=== PATIENT | female | born 1990 | race Caucasian/White ===

== ENCOUNTER 2018-06-07 10:45 | Emergency (ER) | payer SELFPAY ==
[2018-06-07] MEDS ORDERED: Ketorolac 60 MG/2 ML SDV IM ONE (11:16)
[2018-06-07 11:22] LABS: CHLORIDE,CL 103 mEq/L (98-106); SODIUM,NA 139 mEq/L (136-145)
--- NOTE | 2018-06-07 12:35 | EDM.PDOC ---
ED HPI GENERAL MEDICAL PROBLEM - General Chief Complaint: Respiratory Problem Stated Complaint: BREATHING DIFFICULTY Time Seen by Provider: 06/07/18 11:15 Source of Information: Reports: Patient History Limitations: Reports: No Limitations - History of Present Illness INITIAL COMMENTS - FREE TEXT/NARRATIVE: Patient presents to ER with complaints of pain to the left breast. States has a lump to the inner quadrant near her sternum and it hurts when she breathes. Has felt a firmness in her abdomen now for a year and her breast but only had the pain for the last 4 days. She denies a cough. No trauma. Has had nausea and dry heaves. No vomiting. No prior medical history. She admits that she did take a Zofran of her 's for the nausea and that did help. She also has been taking Pepcid AC and TUMS for quite some time for the heartburn without much relief. Patient relates she feels better if she holds her breast up. No urinary or bowel complaints. Onset: Gradual Duration: Week(s):, Waxing/Waning Location: Reports: Chest, Abdomen Quality: Reports: Sharp, Stabbing Severity: Severe Improves with: Reports: Rest Worsens with: Reports: Breathing Treatments [employer]: Reports: Other Medication(s) Other Treatments [employer]: Pepcid AC, Tums, Zofran Left Chest Pain Score (Numeric/FACES): 8 - Related Data Allergies Allergy/AdvReac Type Severity Reaction Status Date / Time No Known Allergies Allergy Verified 06/07/18 11:04 Home Meds: Home Meds Ondansetron HCl [Zofran] 4 mg PO Q8H #30 tablet 06/07/18 [Rx] Pantoprazole Sodium [Protonix] 20 mg PO DAILY #30 tablet. 06/07/18 [Rx] Sucralfate [Carafate] 1 gm PO QIDACANDBED #28 cup 06/07/18 [Rx] Past Medical History HEENT History: Reports: None Cardiovascular History: Reports: None Respiratory History: Reports: None Gastrointestinal History: Reports: Other (See Below) Other Gastrointestinal History: acid reflux Genitourinary History: Reports: None [employer] History: Reports: Musculoskeletal History: Reports: None Neurological History: Reports: None Psychiatric History: Reports: None Endocrine/Metabolic History: Reports: None Hematologic History: Reports: None Immunologic History: Reports: None Oncologic (Cancer) History: Reports: None Dermatologic History: Reports: None - Past Surgical History Head Surgeries/Procedures: Reports: None Cardiovascular Surgical History: Reports: None Respiratory Surgical History: Reports: None GI Surgical History: Reports: None Female Surgical History: Reports: Tubal Ligation Endocrine Surgical History: Reports: None Neurological Surgical History: Reports: None Oncologic Surgical History: Reports: None Dermatological Surgical History: Reports: None Social & Family History - Tobacco Use Smoking Status *Q: Never Smoker ED ROS GENERAL - Review of Systems Review Of Systems: See Below Constitutional: Reports: Decreased Appetite. Denies: Fever, Chills, Malaise, Weakness HEENT: Reports: No Symptoms Respiratory: Reports: Pleuritic Chest Pain. Denies: Shortness of Breath, Cough Cardiovascular: Denies: Chest Pain, Edema, Lightheadedness Endocrine: Denies: Fatigue GI/Abdominal: Reports: Abdominal Pain, Nausea. Denies: Black Stool, Bloody Stool, Constipation, Diarrhea, Vomiting Musculoskeletal: Reports: No Symptoms Skin: Reports: No Symptoms Neurological: Reports: No Symptoms ED EXAM, GENERAL - Physical Exam Exam: See Below Exam Limited By: No Limitations General Appearance: Alert, WD/WN, Mild Distress Ears: Normal External Exam, Normal TMs Nose: Normal Inspection, Normal Mucosa, No Blood Throat/Mouth: Normal Inspection, Normal Oropharynx Head: Normocephalic Neck: Normal Inspection, Supple, Non-Tender Respiratory/Chest: No Respiratory Distress, Lungs Clear, Normal Breath Sounds Cardiovascular: Regular Rate, Rhythm GI/Abdominal: Normal Bowel Sounds, Soft, Tender (bilateral upper quadrants) Extremities: Normal Inspection, Normal Capillary Refill Neurological: Alert, Oriented Skin Exam: Warm, Dry Course - Vital Signs Last Recorded V/S: Last Vital Signs Temp 96.7 F 06/07/18 10:57 Pulse 110 H 06/07/18 10:57 Resp 18 06/07/18 10:57 BP 140/97 H 06/07/18 10:57 Pulse Ox 97 06/07/18 10:57 - Orders/Labs/Meds Orders: Active Orders 24 hr Category Date Time Status Abdomen Ltd [US] Stat Exams 06/07/18 11:49 Ordered Chest 2V [CR] Stat Exams 06/07/18 10:58 Taken HCG QUALITATIVE,URINE [URCHEM] Stat Lab 06/07/18 11:08 Ordered Labs: Laboratory Tests 06/07/18 06/07/18 06/07/18 Range/Units 11:08 11:08 11:08 WBC 10.3 H (5.0-10.0) 10^3/uL RBC 4.88 (4.00-5.50) 10^6/uL Hgb 13.5 (12.0-16.0) g/dL Hct 41.0 (37.0-47.0) % MCV 84.0 (82.0-94.0) fL MCH 27.7 (27.0-32.0) pg MCHC 32.9 L (33.0-38.0) g/dL RDW Coeff of Sammy 15.8 H (11.0-15.0) % Plt Count 377 (150-400) 10^3/uL Neut % (Auto) 57.6 (35-85) % Lymph % (Auto) 32.3 (10-55) % [place] % (Auto) 4.9 (0-16) % Eos % (Auto) 4.8 (0-5) % Baso % (Auto) 0.4 (0-3) % Neut # (Auto) 5.94 (1.80-7.00) 10^3/uL Lymph # (Auto) 3.33 (1.00-4.80) 10^3/uL Henderson # (Auto) 0.51 (0.00-0.80) 10^3/uL Eos # (Auto) 0.49 H (0.00-0.45) 10^3/uL Baso # (Auto) 0.04 10^3/uL D-Dimer, Quantitative 0.49 (0.00-0.50) Sodium 139 (136-145) mEq/L Potassium 4.1 (3.5-5.0) mEq/L Chloride 103 (98-106) mEq/L Carbon Dioxide 24 (21-32) mmol/L BUN 6 L (7-18) mg/dL Creatinine 0.8 (0.6-1.0) mg/dL Est Cr Clr Drug Dosing 74.53 mL/min Estimated GFR (MDRD) > 60 (>=60) mL/min Glucose 124 H (75-99) mg/dL Calcium 8.4 (8.4-10.1) mg/dL Total Bilirubin 0.5 (0.0-1.0) mg/dL AST 210 H (15-37) U/L ALT 250 H (12-78) U/L Alkaline Phosphatase 109 (46-116) U/L C-Reactive Protein 4.1 H (0.2-0.8) mg/dL Total Protein 7.4 (6.4-8.2) g/dL Albumin 3.0 L (3.4-5.0) g/dL Urine HCG, Qual 06/07/18 Range/Units 11:08 WBC (5.0-10.0) 10^3/uL RBC (4.00-5.50) 10^6/uL Hgb (12.0-16.0) g/dL Hct (37.0-47.0) % MCV (82.0-94.0) fL MCH (27.0-32.0) pg MCHC (33.0-38.0) g/dL RDW Coeff of Sammy (11.0-15.0) % Plt Count (150-400) 10^3/uL Neut % (Auto) (35-85) % Lymph % (Auto) (10-55) % Henderson % (Auto) (0-16) % Eos % (Auto) (0-5) % Baso % (Auto) (0-3) % Neut # (Auto) (1.80-7.00) 10^3/uL Lymph # (Auto) (1.00-4.80) 10^3/uL Henderson # (Auto) (0.00-0.80) 10^3/uL Eos # (Auto) (0.00-0.45) 10^3/uL Baso # (Auto) 10^3/uL D-Dimer, Quantitative (0.00-0.50) Sodium (136-145) mEq/L Potassium (3.5-5.0) mEq/L Chloride (98-106) mEq/L Carbon Dioxide (21-32) mmol/L BUN (7-18) mg/dL Creatinine (0.6-1.0) mg/dL Est Cr Clr Drug Dosing mL/min Estimated GFR (MDRD) (>=60) mL/min Glucose (75-99) mg/dL Calcium (8.4-10.1) mg/dL Total Bilirubin (0.0-1.0) mg/dL AST (15-37) U/L ALT (12-78) U/L Alkaline Phosphatase (46-116) U/L C-Reactive Protein (0.2-0.8) mg/dL Total Protein (6.4-8.2) g/dL Albumin (3.4-5.0) g/dL Urine HCG, Qual Negative Meds: Medications Discontinued Medications Generic Name Dose Route Start Last Admin Trade Name Gordon PRN Reason Stop Dose Admin Ketorolac Tromethamine 60 mg 06/07/18 11:16 06/07/18 11:25 Toradol IM 06/07/18 11:17 60 mg ONETIME ONE Administration - Re-Assessments/Exams Free Text/Narrative Re-Assessment/Exam: 06/07/18 Labs reviewed. Does have notable elevated liver enzymes. Will proceed with an ultrasound of her gallbladder. 1200 Gallbladder is positive for stones. Will plan for possible surgery on Wednesday. Start on meds now for discomfort and heartburn. Departure - Departure Time of Disposition: 12:33 Disposition: Home, Self-Care 01 Condition: Fair Clinical Impression: Cholelithiasis - Discharge Information *PRESCRIPTION DRUG MONITORING PROGRAM REVIEWED*: Not Applicable *COPY OF PRESCRIPTION DRUG MONITORING REPORT IN PATIENT OLAF: Not Applicable Prescriptions: Ondansetron HCl [Zofran] 4 mg PO Q8H #30 tablet Pantoprazole Sodium [Protonix] 20 mg PO DAILY #30 tablet. Sucralfate [Carafate] 1 gm PO QIDACANDBED #28 cup Forms: ED Department Discharge Additional Instructions: 1. [place] diet 2. Zofran 4 mg every 8 hours as needed for nausea 3. Carafate 1 gm 4 times per day before meals and bedtime 4. Protonix 40 mg daily 5. [place] 5/325 1-2 tabs every 6 hours as needed for pain 6. We will contact you with a surgical date and time - My Orders Last 24 Hours: My Active Orders 06/07/18 10:58 Chest 2V [CR] Stat 06/07/18 11:08 HCG QUALITATIVE,URINE [URCHEM] Stat 06/07/18 11:49 Abdomen Ltd [US] Stat - Assessment/Plan Last 24 Hours: My Active Orders 06/07/18 10:58 Chest 2V [CR] Stat 06/07/18 11:08 HCG QUALITATIVE,URINE [URCHEM] Stat 06/07/18 11:49 Abdomen Ltd [US] Stat
== END 2018-06-07 12:42 | disposition home or self-care (01) ==
LOC: CC.ED 10:45
DX: K80.20 Calculus of gallbladder without cholecystitis without obstruction (principal); N63.20 Unspecified lump in the left breast, unspecified quadrant; N63.0 Unspecified lump in unspecified breast; Z79.899 Other long term (current) drug therapy
CPT/HCPCS: 36415; 71046; 76705; 80053; 81025; 85025; 85379; 86140; 96372; 99284; J1885

== ENCOUNTER 2018-06-13 11:29 | Day surgery (SDC) | payer MEDICAID ==
[~2018-06-13 11:29] MED LIST: ceFAZolin 1 GM Vial IVPUSH ONE
[2018-06-13] MEDS ORDERED: Ketorolac 30 MG/ML SDV IVPUSH ONE (11:30)
[2018-06-13] MEDS ORDERED: Glycopyrrolate 0.2 MG/ML SDV IVPUSH ONE (11:30)
[2018-06-13] MEDS ORDERED: HYDROmorphone 1 MG/ML Syringe IV ONE (11:30)
[2018-06-13] MEDS ORDERED: Dexamethasone 4 MG/ML SDV IV ONE (11:30)
[2018-06-13] MEDS ORDERED: Lactated Ringers 1,000 ML IV SCH (11:30)
[2018-06-13] MEDS ORDERED: Ondansetron 4 MG/2 ML SDV IV ONE (11:30)
[2018-06-13] MEDS ORDERED: fentaNYL 100 MCG/2 ML SDV IV ONE (11:30)
[2018-06-13] MEDS ORDERED: Rocuronium 50 MG/5 ML Vial IV ONE (11:30)
[2018-06-13] MEDS ORDERED: Neostigmine Methylsulfate 10 MG/10 ML MDV IV ONE (11:30)
[2018-06-13] MEDS ORDERED: Propofol 200 MG/20 ML SDV IV ONE (11:30)
[2018-06-13] MEDS ORDERED: Succinylcholine 200 MG/10 ML MDV IV ONE (11:30)
[2018-06-13] MEDS ORDERED: Midazolam 1 MG/ML 2 ML SDV IV ONE (11:30)
[2018-06-13] MEDS ORDERED: Ondansetron 4 MG/2 ML SDV IVPUSH PRN (15:01)
[2018-06-13] MEDS ORDERED: Sodium Chloride 0.9% 10 ML Syringe FLUSH PRN (15:01)
[2018-06-13] MEDS ORDERED: Morphine 2 MG/ML Syringe IVPUSH PRN (15:01)
--- NOTE | 2018-06-13 16:11 | OR ---
DATE OF OPERATION: 06/13/2018 PREOPERATIVE DIAGNOSIS: CHRONIC CHOLECYSTITIS AND CHOLELITHIASIS. POSTOPERATIVE DIAGNOSIS: CHRONIC CHOLECYSTITIS AND CHOLELITHIASIS PLUS HYDROPS OF THE GALLBLADDER. SURGEON: Mata Champion MD PROCEDURE: LAPAROSCOPIC CHOLECYSTECTOMY. ANESTHESIA: General. ESTIMATED BLOOD LOSS: Less than 100 mL. SPECIMEN: Gallbladder and stones. INDICATIONS: This 27-year-old female had presented to the emergency room last weekend with right upper quadrant symptomatic cholecystitis. Ultrasound showed dilated gallbladder and probable impacted stone in the Niki pouch. FINDINGS: Impacted stone in the Niki pouch with hydrops (while bile) in the gallbladder. DESCRIPTION OF PROCEDURE: After adequate preparation, trocars were placed in the usual fashion under direction vision. Examination of the abdomen showed large liver and this patient is morbidly obese. An extra fan retractor was needed to depress the duodenum and expose the bottom part of the gallbladder. The cystic triangle and structure were dissected free and clipped and divided. The gallbladder was taken off the liver bed using blunt sharp and Bovie dissection. There was one small rent in the gallbladder which relieved clear bile indicating complete obstruction and hydrops of the gallbladder. The gallbladder was then placed within a retrieval bag and brought out through the epigastric trocar site. The right upper quadrant was irrigated with saline and suctioned clear. The abdomen was desufflated and the skin closed with 4-0 Monocryl. BPJose/YENY /[id number]
[2018-06-13] MEDS: Acetaminophen/oxyCODONE 325-5 MG Tab PO PRN ×2 (17:28→21:22)
[2018-06-14] MEDS: Acetaminophen/oxyCODONE 325-5 MG Tab PO PRN ×2 (04:29→08:52)
--- NOTE | 2018-06-14 07:03 | PCM.SN ---
- Free Text/Narrative Note: Patient stable. One episode of N&V last night. Seems better this AM. Incisions clean. Pain controlled but has difficulty with deep breathing secondary to back pain. VSS. Discharge instructions given, feels OK to discharge.
== END 2018-06-14 09:00 | disposition home or self-care (01) ==
LOC: CC.SDS 11:29 → CC.MS 16:48 → CC.SDS 06-14 09:00
PROVIDERS: ATTEND Surgery
DX: K80.10 Calculus of gallbladder with chronic cholecystitis without obstruction (principal); K82.1 Hydrops of gallbladder; K21.9 Gastro-esophageal reflux disease without esophagitis; Z79.899 Other long term (current) drug therapy
CPT/HCPCS: 36415; 84703; A9270-GY; J0330; J0690; J1100; J1170; J1885; J2250; J2405; J2704; J2710; J3010; J3490; J7120